=== PATIENT | female | born 1940 | race Hispanic/Latino ===

== ENCOUNTER 2017-09-13 10:53 | Emergency (ER) | payer MEDICARE, BC ==
[2017-09-13 10:54] VITALS: BMI 31.5
[2017-09-13 11:12] VITALS: TEMP 98; O2SAT 97
[2017-09-13] MEDS ORDERED: TDAP Vaccine 0.5 mL Syr IM ONE (11:19)
--- NOTE | 2017-09-13 11:27 | ED PDOC ---
Arrival/HPI - General Chief Complaint: Trauma Time Seen by Provider: 09/13/17 11:09 Historian: Patient - History of Present Illness Narrative History of Present Illness (Text): 09/13/17 11:14 A 77 year old female, whose past medical history includes diabetes and hypertension, presents to the emergency department complaining of mechanical fall. Patient reports she walked out of a store, and tripped and fell on the sidewalk. She complains of pain to right hip, right knee, right hand, left wrist , and notes an abrasion from glasses. Patient denies any LOC, back pain, neck pain, chest pain, abdominal pain, or any other complaints. Patient has no history of smoking or EtOH consumption. No PMD Associated Symptoms (Text): 09/13/17 11:42 Mechanical fall on uneven sidewalk just prior to arrival injuring her right knee and hip. Right hand and left wrist. Bridge of her nose and the left orbit secondary to her glasses. There was no loss of consciousness. No dizziness or lightheadedness numbness tingling or paresthesias. No chest pain or palpitations. She is ambulatory. Past Medical History - Provider Review Nursing Documentation Reviewed: Yes - Infectious Disease Hx of Infectious Diseases: None - Reproductive Menopause: Yes - Cardiac Hx Hypertension: Yes Hx Pacemaker: No - Pulmonary Hx Asthma: Yes (seasonal) - Neurological Hx Paralysis: No - HEENT Other/Comment: chronic migraines - Endocrine/Metabolic Hx Diabetes Mellitus Type 2: Yes Hx Hypothyroidism: Yes - Hematological/Oncological Hx Blood Transfusions: Yes (POSSIBLE) Hx Blood Transfusion Reaction: No - Musculoskeletal/Rheumatological Hx Musculoskeletal Disorders: Yes - Gastrointestinal Hx Constipation: Yes - Psychiatric Hx Emotional Abuse: No Hx Physical Abuse: No Hx Substance Use: No - Surgical History Hx Appendectomy: Yes Hx Hysterectomy: (fibroids) Hx Orthopedic Surgery: Yes - Anesthesia Hx Anesthesia Reactions: No Hx Malignant Hyperthermia: No - Suicidal Assessment Feels Threatened In Home Enviroment: No Family/Social History - Physician Review Nursing Documentation Reviewed: Yes Family/Social History: No Known Family HX Smoking Status: Former Smoker Hx Alcohol Use: No Hx Substance Use: No Allergies/Home Meds Allergies/Adverse Reactions: Allergies celecoxib [From Celebrex] Allergy (Verified 09/13/17 11:16) RASH chocolate flavor Allergy (Verified 09/13/17 11:16) RASH nabumetone Allergy (Verified 09/13/17 11:16) CONGESTION rizatriptan Allergy (Verified 09/13/17 11:16) RASH topiramate [From Topamax] Allergy (Verified 09/13/17 11:16) RASH naftifine [From Naftin] Adverse Reaction (Verified 09/13/17 11:16) RASH DANDER Adverse Reaction (Uncoded 06/07/15 13:07) CONGESTION DUST Adverse Reaction (Uncoded 06/07/15 13:07) CONGESTION PROMISEB Adverse Reaction (Uncoded 06/07/15 13:07) REDNESS RAGWEED Adverse Reaction (Uncoded 06/07/15 13:07) CONGESTION VIOX Adverse Reaction (Uncoded 06/07/15 13:07) HEADACHE Home Medications: Home Meds Medication Instructions Recorded Confirmed Acetaminophen/Butalbital/Caf 1 tab PO PRN PRN 01/17/13 06/07/15 [Fioricet 325 mg-50 mg-40 mg] Esomeprazole Magnesium [Nexium] 20 mg PO DAILY 01/17/13 06/07/15 Gabapentin [Neurontin] 100 mg PO TID 01/17/13 06/07/15 Lamotrigine [Lamictal] 150 mg PO DAILY 01/17/13 06/07/15 Levothyroxine Sodium [Synthroid] 0.125 mcg PO QAM 01/17/13 06/07/15 Lovastatin [Mevacor] 40 mg PO DAILY 01/17/13 06/07/15 Metformin HCl [Metformin HCl ER] 1,000 mg PO BID 01/17/13 06/07/15 Montelukast [Singulair] 10 mg PO HS 01/17/13 06/07/15 Naratriptan HCl [Amerge] 2.5 mg PO PRN PRN 01/17/13 06/07/15 Nisoldipine [Sular] 8.5 mg PO BID 01/17/13 06/07/15 Tramadol HCl [Ultram] 50 mg PO PRN PRN 01/17/13 06/07/15 Aspirin 81 mg PO DAILY 01/18/13 06/07/15 Calcium Carbonate/Vitamin D 1 cap PO DAILY 01/18/13 06/07/15 [Calcium/Vitamin D] Lactobacillus Acidophilus 1 ctb PO DAILY 01/18/13 06/07/15 [Acidophilus] Multimineral [Ehm-Xcm-Czdq] 1 tab PO DAILY 01/18/13 06/07/15 Multivitamin [Daily Multi Vitamin] 1 tab PO DAILY 01/18/13 06/07/15 Coenzyme Q10 [Co Q-10] 0 mg PO DAILY 06/07/15 06/07/15 D3-2000 1 tab PO BID 06/07/15 06/07/15 Thioctic Acid [Alpha Lipoic Acid] 0 mg PO HS 06/07/15 06/07/15 Review of Systems - Physician Review All systems were reviewed & negative as marked: Yes - Review of Systems Constitutional: Normal Respiratory: Normal Cardiovascular: Normal. absent: Chest Pain Gastrointestinal: Normal. absent: Abdominal Pain Musculoskeletal: Other (pain to right hip, right knee, right hand, left wrist). absent: Back Pain, Neck Pain Neurological: absent: Headache, Dizziness, Focal Weakness Physical Exam Vital Signs Reviewed: Yes Vital Signs Temp Pulse Resp BP Pulse Ox 09/13/17 11:10 98 F 67 18 183/70 H 97 09/13/17 11:07 98.4 F 67 16 183/70 H 97 Temperature: Afebrile Blood Pressure: Hypertensive Pulse: Regular Respiratory Rate: Normal Appearance: Positive for: Well-Appearing, Comfortable Pain Distress: Mild Mental Status: Positive for: Alert and Oriented X 3 - Systems Exam Head: Present: Abrasion (superficial abrasion to bridge of nose left infraorbital rim from glasses (nontender), no swelling. Extraocular muscles intact) Pupils: Present: PERRL Extroacular Muscles: Present: EOMI Conjunctiva: Present: Normal Ears: Present: NORMAL TM, Normal Canal. No: Erythema Mouth: Present: Moist Mucous Membranes Pharnyx: No: ERYTHEMA, EXUDATE, TONSILS ENLARGED Neck: Present: Normal Range of Motion Respiratory/Chest: Present: Clear to Auscultation, Good Air Exchange. No: Respiratory Distress, Accessory Muscle Use, Tender to Palpation Cardiovascular: Present: Regular Rate and Rhythm, Normal S1, S2. No: Murmurs Abdomen: Present: Normal Bowel Sounds. No: Tenderness, Distention, Peritoneal Signs Back: Present: Normal Inspection. No: CVA Tenderness, Midline Tenderness, Paraspinal Tenderness, Pain with Leg Raise Upper Extremity: Present: Tenderness (tenderness to left wrist), Other (Dorsal abrasions to right hand. Nontender with full range of motion. No swelling. Left wrist tenderness with no swelling or skin changes. Full range of motion.). No: Swelling (left wrist) Lower Extremity: Present: Normal ROM (full ROM to right hip and right knee), Tenderness (right hip tenderness and right knee mildly tender), Other ( superficial abrasion to anterior right knee with tenderness. Full range of motion. Able to weight-bear. Right hip is tender with full range of motion.) Neurological: Present: GCS=15, CN II-XII Intact, Speech Normal, Motor Func Grossly Intact Skin: Present: Abrasion (Abrasions as above) Psychiatric: Present: Alert, Oriented x 3, Normal Insight, Normal Concentration Medical Decision Making ED Course and Treatment: 09/13/17 11:19 Impression: 77 year old female complaining of mechanical fall. Physical exam shows superficial abrasion to right anterior knee that is mildly tender and has full ROM; right hip tenderness with no skin changes; dorsal abrasion to right hand with no tenderness and full ROM; left wrist tenderness with no skin changes or swelling; superficial abrasion to bridge of nose left interorbital rim from glasses (nontender) extraocular muscles intact. Plan: -- Right Hand X-Ray -- Right Hip X-ray -- Right Knee X-ray -- Left Wrist X-ray -- Boostrix -- Tylenol -- Reassess and disposition Prior Visits: Notes and results from previous visits were reviewed. Patient was last seen in the emergency department on 06/07/2015 for high fever (104 degrees F). Patient was admitted. Progress Notes: - RAD Interpretation Radiology Orders: 09/13/17 11:19 Hip Right [HIP MIN 2V W/ PELVIS RT] [RAD] Stat 09/13/17 11:20 HAND RIGHT 3 VIEWS [RAD] Stat KNEE RIGHT 2 VIEWS (AP & LAT) [RAD] Stat 09/13/17 11:21 WRIST, LEFT 3 VIEWS [RAD] Stat X-ray left wrist 3 view shows no fracture or dislocation. Right hand 3 views no fracture or dislocation. Right knee 2 views no fracture dislocation. Right hip and pelvis no fracture or dislocation. 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 No Sleep Is patient sleeping during reassessment? No Presence of Pain Presence of Pain Yes Location Pain Location Body Site Generalized Tetanus/Reduced Diphtheria/Acell Pertussis (Boostrix Vaccine Inj) 0.5 ml IM .ONCE ONE Stop: 09/13/17 11:20 - Scribe Statement The provider has reviewed the documentation as recorded by the Sha Turcios Provider Scribe Attestation: All medical record entries made by the Scribe were at my direction and personally dictated by me. I have reviewed the chart and agree that the record accurately reflects my personal performance of the history, physical exam, medical decision making, and the department course for this patient. I have also personally directed, reviewed, and agree with the discharge instructions and disposition. Disposition/Present on Arrival - Present on Arrival Any Indicators Present on Arrival: No History of DVT/PE: No History of Uncontrolled Diabetes: No Urinary Catheter: No History of Decub. Ulcer: No History Surgical Site Infection Following: None - Disposition Have Diagnosis and Disposition been Completed?: Yes Diagnosis: Contusion, Abrasion Disposition: HOME/ ROUTINE Disposition Time: 12:41 Patient Plan: Discharge Condition: GOOD Discharge Instructions (ExitCare): Abrasion (ED), Contusion in Adults (ED) Additional Instructions: Rest ice and elevation. Hypertension check with PMD. Follow-up with PMD. Follow- up in the ER as needed. Tylenol or Advil as directed on bottle as needed. Ultram if [id number] medication is not working. Prescriptions: Tramadol HCl [Ultram] 50 mg PO Q6 PRN #15 tab PRN Reason: Pain Forms: [employer] ([place]ican)
[2017-09-13 13:37] VITALS: BP 172/87; PULSE 72; RESP 16
--- NOTE | 2017-09-13 13:47 | RAD ---
PROCEDURE: Right Hand Radiographs. HISTORY: t COMPARISON: None. FINDINGS: BONES: Normal. No fracture. JOINTS: There is joint space narrowing in the 1st MCP and PIP joints SOFT TISSUES: Normal. OTHER FINDINGS: None. IMPRESSION: There is joint space narrowing in the 1st MCP and PIP joints
--- NOTE | 2017-09-13 13:47 | RAD ---
PROCEDURE: Left Wrist Radiographs. HISTORY: tr COMPARISON: None. FINDINGS: BONES: Normal. No fracture. JOINTS: Normal. No dislocation. SOFT TISSUES: Normal. OTHER FINDINGS: None. IMPRESSION: Normal left wrist radiographs.
--- NOTE | 2017-09-13 13:48 | RAD ---
PROCEDURE: Right Knee Radiographs. HISTORY: trauma COMPARISON: None. FINDINGS: BONES: Normal. No fracture. JOINTS: Normal. No osteoarthritis. JOINT EFFUSION: None. OTHER FINDINGS: None. IMPRESSION: Normal radiographs of the right knee.
--- NOTE | 2017-09-13 13:49 | RAD ---
PROCEDURE: Right Hip and pelvis Radiographs. HISTORY: trauma COMPARISON: None. FINDINGS: BONES: Normal. No fracture. JOINTS: Normal. SOFT TISSUES: Normal. OTHER FINDINGS: None. IMPRESSION: Negative study
== END 2017-09-13 13:21 | disposition home or self-care (01) ==
LOC: ED 10:53
DX: S60.812A Abrasion of left wrist, initial encounter (principal); S80.211A Abrasion, right knee, initial encounter; T14.8XXA Other injury of unspecified body region, initial encounter; W01.0XXA Fall on same level from slipping, tripping and stumbling without subsequent striking against object, initial encounter; Y92.480 Sidewalk as the place of occurrence of the external cause; E03.9 Hypothyroidism, unspecified; E11.9 Type 2 diabetes mellitus without complications; I10 Essential (primary) hypertension; Z87.891 Personal history of nicotine dependence

== ENCOUNTER 2018-09-15 06:37 | Day surgery (SDC) | payer MEDICARE, BC ==
[2018-09-07 08:50] VITALS: BMI 31.1
[2018-09-15] MEDS ORDERED: Propofol 10 mg/ml Inj (20 ML) ONE (08:26)
[2018-09-15] MEDS ORDERED: Sodium Chloride 0.9% 1,000 ML IV SCH (08:30)
[2018-09-15 09:14] VITALS: RESP 12; TEMP 98
[2018-09-15 09:35] VITALS: BP 144/63
[2018-09-15 10:40] VITALS: PULSE 64; O2SAT 97
== END 2018-09-15 10:17 | disposition home or self-care (01) ==
LOC: ENDO 06:37
PROVIDERS: ATTEND Specialist
DX: Z85.038 Personal history of other malignant neoplasm of large intestine (principal); K57.30 Diverticulosis of large intestine without perforation or abscess without bleeding; K64.8 Other hemorrhoids; I25.10 Atherosclerotic heart disease of native coronary artery without angina pectoris; E03.9 Hypothyroidism, unspecified; E11.9 Type 2 diabetes mellitus without complications; M19.90 Unspecified osteoarthritis, unspecified site; K21.9 Gastro-esophageal reflux disease without esophagitis; G89.29 Other chronic pain; M54.9 Dorsalgia, unspecified; Z90.49 Acquired absence of other specified parts of digestive tract; Z90.721 Acquired absence of ovaries, unilateral; K29.70 Gastritis, unspecified, without bleeding; K22.2 Esophageal obstruction; Z88.8 Allergy status to other drugs, medicaments and biological substances; Z91.018 Allergy to other foods; Z86.010 Personal history of colon polyps
CPT/HCPCS: 45378; 82948; J2001; J2704; J7030

== ENCOUNTER 2019-02-28 09:56 | Emergency (ER) | payer MEDICARE, BC ==
--- NOTE | 2019-02-28 10:05 | ED PDOC ---
Arrival/HPI - General Chief Complaint: Trauma Time Seen by Provider: 02/28/19 09:57 Historian: Patient - History of Present Illness Narrative History of Present Illness (Text): 02/28/19 10:20 78 y/o female with PMH of HTN, HLD, DM, Migraines, presents to the ED for evaluation of neck pain, back pain, and knee pain s/p mechanical fall this morning. Pt was taking her to a doctor's appointment, trying to move his walker through a door threshold when she fell forward, hitting her head and knees on the ground. Denies LOC. Pt was able to return to standing and ambulate without assistance. She does not take blood thinners. Currently c/o left sided neck pain, back pain, and bilateral knee pain. Denies open wounds, headache, dizziness, vision changes, numbness, weakness, paresthesias, saddle anesthesia, incontinence, thoracic back pain, arm pain, or any other associated symptoms. Past Medical History - Provider Review Nursing Documentation Reviewed: Yes - Infectious Disease Hx of Infectious Diseases: None - Cardiac Hx Pacemaker: No - Pulmonary Hx Asthma: Yes (seasonal) - Neurological Hx Paralysis: No - HEENT Other/Comment: chronic migraines - Endocrine/Metabolic Hx Diabetes Mellitus Type 2: Yes Hx Hypothyroidism: Yes - Hematological/Oncological Hx Blood Transfusions: No Hx Blood Transfusion Reaction: No - Musculoskeletal/Rheumatological Hx Musculoskeletal Disorders: Yes - Gastrointestinal Hx Constipation: Yes - Psychiatric Hx Emotional Abuse: No Hx Physical Abuse: No Hx Substance Use: No - Surgical History Hx Appendectomy: Yes Hx Hysterectomy: (fibroids) Hx Orthopedic Surgery: Yes - Anesthesia Hx Anesthesia Reactions: No Hx Malignant Hyperthermia: No - Suicidal Assessment Feels Threatened In Home Enviroment: No Family/Social History - Physician Review Nursing Documentation Reviewed: Yes Family/Social History: No Known Family HX Smoking Status: Former Smoker Hx Alcohol Use: Yes (SOCIALLY) Hx Substance Use: No Allergies/Home Meds Allergies/Adverse Reactions: Allergies celecoxib [From Celebrex] Allergy (Verified 09/13/17 11:16) RASH chocolate flavor Allergy (Verified 09/13/17 11:16) RASH nabumetone Allergy (Verified 09/13/17 11:16) CONGESTION rizatriptan Allergy (Verified 09/13/17 11:16) RASH topiramate [From Topamax] Allergy (Verified 09/13/17 11:16) RASH naftifine [From Naftin] Adverse Reaction (Verified 09/13/17 11:16) RASH DANDER Adverse Reaction (Uncoded 06/07/15 13:07) CONGESTION DUST Adverse Reaction (Uncoded 06/07/15 13:07) CONGESTION PROMISEB Adverse Reaction (Uncoded 06/07/15 13:07) REDNESS RAGWEED Adverse Reaction (Uncoded 06/07/15 13:07) CONGESTION VIOX Adverse Reaction (Uncoded 06/07/15 13:07) HEADACHE Home Medications: Home Meds Medication Instructions Recorded Confirmed Lovastatin [Mevacor] 40 mg PO DAILY 01/17/13 09/15/18 Metformin HCl [Metformin HCl ER] 1,000 mg PO BID 01/17/13 09/15/18 Montelukast [Singulair] 10 mg PO HS 01/17/13 09/15/18 Naratriptan HCl [Amerge] 2.5 mg PO PRN PRN 01/17/13 09/15/18 Nisoldipine [Sular] 8.5 mg PO BID 01/17/13 09/15/18 Aspirin 81 mg PO DAILY 01/18/13 09/15/18 Acetaminophen/Butalbital/Caf 1 tab PO PRN PRN 09/07/18 09/15/18 [Fioricet] Alpha Lipoic Acid 0 mg PO HS 09/07/18 09/15/18 Cholecalciferol (Vitamin D3) 2,000 unit PO BID 09/07/18 09/15/18 [Vitamin D3] Esomeprazole Magnesium [Nexium] 40 mg PO DAILY 09/07/18 09/15/18 Gabapentin [Neurontin] 300 mg PO TID 09/07/18 09/15/18 Levothyroxine [Synthroid] 125 mcg PO DAILY 09/07/18 09/15/18 Multimineral/Multivitamin 1 tab PO DAILY 09/07/18 09/15/18 [Therapeutic-M Tab] Multivitamin [Multivitamins] 1 each PO DAILY 09/07/18 09/15/18 Ubidecarenone [Co Q-10] 10 mg PO DAILY 09/07/18 09/07/18 lamoTRIgine [LaMICtal] 50 mg PO QAM 09/07/18 09/15/18 lamoTRIgine [LaMICtal] 100 mg PO QPM 09/07/18 09/15/18 Review of Systems - Review of Systems Constitutional: Normal. absent: Fatigue Eyes: Normal. absent: Vision Changes ENT: Normal. absent: Epistaxis Respiratory: Normal. absent: SOB, Cough Cardiovascular: Normal. absent: Chest Pain, Palpitations, Syncope Gastrointestinal: Normal. absent: Abdominal Pain, Nausea, Vomiting Genitourinary Female: Normal. absent: Dysuria, Frequency Musculoskeletal: Back Pain, Neck Pain, Other (bilateral knee pain) Neurological: Normal. absent: Headache, Dizziness, Focal Weakness, Gait Changes, Seizure, Other (no numbness, weakness, paresthesias) Physical Exam Vital Signs Reviewed: Yes Temperature: Afebrile Blood Pressure: Normal Pulse: Regular Respiratory Rate: Normal Appearance: Positive for: Well-Appearing, Non-Toxic, Comfortable Pain Distress: None Mental Status: Positive for: Alert and Oriented X 3 - Systems Exam Head: Present: Atraumatic, Normocephalic Pupils: Present: PERRL Extroacular Muscles: Present: EOMI Conjunctiva: Present: Normal Mouth: Present: Moist Mucous Membranes Neck: Present: Normal Range of Motion, Paraspinal Tenderness (left side). No: Meningeal Signs, MIDLINE TENDERNESS Respiratory/Chest: Present: Clear to Auscultation, Good Air Exchange. No: Respiratory Distress, Accessory Muscle Use Cardiovascular: Present: Regular Rate and Rhythm, Normal S1, S2, Peripheal Pulses Present Abdomen: No: Tenderness Back: Present: Normal Inspection, Midline Tenderness (lumbar spine), Paraspinal Tenderness (bilateral lumbar, L>R). No: CVA Tenderness Upper Extremity: Present: Normal Inspection, Normal ROM, NORMAL PULSES, Neurovascularly Intact, Capillary Refill < 2s. No: Cyanosis, Edema, Temperature Abnormalties Lower Extremity: Present: Normal Inspection, NORMAL PULSES, Normal ROM, Tenderness (mild anterior bilateral knees), Neurovascularly Intact, Capillary Refill < 2 s. No: Edema, Erythema, Deformity, Temperature Abnormalties Neurological: Present: GCS=15, CN II-XII Intact, Speech Normal, Motor Func Grossly Intact, Normal Sensory Function, Gait Normal Skin: Present: Warm, Dry, Normal Color. No: Rashes Psychiatric: Present: Alert, Oriented x 3, Normal Insight, Normal Concentration, Normal Affect, Normal Mood Medical Decision Making ED Course and Treatment: 02/28/19 10:19 Initial Plan: * CT Head * CT Cervical Spine * CT Lumbar Spine * Bilateral Knee XR * Tylenol * Lidoderm Imaging negative for any acute pathology. No fractures or dislocation. No open wounds, no indication for tetanus. Pt reports improvement in pain with medication. Ambulating with steady gait, bearing weight without difficulty. Advised PMD followup, provided with orthopedic followup as well. Diagnostic testing results and plan of care discussed with patient. Strict instructions given regarding prescription use, importance of followup, and signs/symptoms to return to ER including worsening pain, headache, dizziness, vomiting, numbness, weakness, paresthesias, or any other new/worsening symptoms. Pt verbalized understanding of discussion. Patient is A&Ox3, ambulating with steady gait, with vital signs stable for discharge. - RAD Interpretation Narrative RAD Interpretations (Text): 02/28/19 12:[address]: FINDINGS: HEMORRHAGE: No intracranial hemorrhage. BRAIN: No mass effect or edema. No atrophy or chronic microvascular ischemic changes. VENTRICLES: Unremarkable. No hydrocephalus. CALVARIUM: Unremarkable. PARANASAL SINUSES: Unremarkable as visualized. No significant inflammatory changes. MASTOID AIR CELLS: Unremarkable as visualized. No inflammatory changes. OTHER FINDINGS: None. IMPRESSION: No acute intracranial findings Cervical Spine CT: FINDINGS: VERTEBRAE: No fracture. Normal alignment. No destructive bony lesion. DISCS/SPINAL CANAL/NEURAL FORAMINA: No significant central canal or neural foraminal stenosis. Discs heights are grossly preserved. PARASPINAL SOFT TISSUES: Unremarkable. OTHER FINDINGS: None. IMPRESSION: Unremarkable CT of the cervical spine. No evidence of fracture Lumbar Spine CT: FINDINGS: VERTEBRAE: Unremarkable. No fracture. Normal alignment. DISCS/SPINAL CANAL/NEURAL FORAMINA: L1-2: Unremarkable. L2-3: Unremarkable. L3-4: Facet arthropathy with mild stenosis L4-5: Severe facet arthropathy and disc bulging with severe spinal stenosis L5-S1: There is severe disc degeneration with osteophyte formation. There is severe facet arthropathy. This results in severe spinal stenosis PARASPINAL SOFT TISSUES: Unremarkable. OTHER FINDINGS: None. IMPRESSION: Severe spinal stenosis at L4-5 and L5-S1. See comments Right Knee XR: FINDINGS: BONES: Bone alignment and mineralization are normal. There is no acute displaced fracture or bone destruction. JOINTS: There is mild tricompartmental degenerative osteoarthrosis with reduced joint spaces, marginal osteophytes and tibial spiking, worse in the medial compartment. JOINT EFFUSION: None. OTHER FINDINGS: None. IMPRESSION: No acute displaced fracture or dislocation. Left Knee XR: FINDINGS: BONES: Bone alignment and mineralization are normal. There is no acute displaced fracture or bone destruction. JOINTS: There is mild tricompartmental degenerative osteoarthrosis with reduced joint spaces, marginal osteophytes and tibial spiking, worse in the medial compartment. JOINT EFFUSION: None. OTHER FINDINGS: None. IMPRESSION: No acute displaced fracture or dislocation. 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 Disposition/Present on Arrival - Present on Arrival Any Indicators Present on Arrival: No History of DVT/PE: No History of Uncontrolled Diabetes: No Urinary Catheter: No History Surgical Site Infection Following: None - Disposition Have Diagnosis and Disposition been Completed?: Yes Diagnosis: Fall, Muscle strain Disposition: HOME/ ROUTINE Disposition Time: 12:15 Patient Plan: Discharge Patient Problems: Current Active Problems Problem Status Onset Fall Acute Muscle strain Acute Condition: GOOD Discharge Instructions (ExitCare): Muscle Strain, Preventing Falls in the Older Adult Additional Instructions: Tylenol/ibuprofen for pain as needed Lidoderm patches daily, 12 hours on 12 hours off Rest, no strenuous activity Followup with primary doctor within 2 days Followup with orthopedist for continues pain Return to ER with any new/worsening symptoms Prescriptions: Lidocaine 5% [Lidoderm] 1 ea TD DAILY PRN #30 patch PRN Reason: Pain, Mild (1-3) Referrals: Delroy Krishnamurthy MD [Staff Provider] - Follow up with primary Rasta Parish MD [Primary Care Provider] - Follow up with primary Forms: [employer] ([place])
[2019-02-28 10:08] VITALS: BMI 30.2
[2019-02-28] MEDS ORDERED: Lidocaine 5% Patch TD STA (10:18)
--- NOTE | 2019-02-28 12:02 | CT ---
Date of service: 02/28/2019 PROCEDURE: CT HEAD WITHOUT CONTRAST. HISTORY: fall COMPARISON: None available. TECHNIQUE: Axial computed tomography images were obtained through the head/brain without intravenous contrast. Radiation dose: Total exam DLP = 860.7 mGy-cm. This CT exam was performed using one or more of the following dose reduction techniques: Automated exposure control, adjustment of the mA and/or kV according to patient size, and/or use of iterative reconstruction technique. FINDINGS: HEMORRHAGE: No intracranial hemorrhage. BRAIN: No mass effect or edema. No atrophy or chronic microvascular ischemic changes. VENTRICLES: Unremarkable. No hydrocephalus. CALVARIUM: Unremarkable. PARANASAL SINUSES: Unremarkable as visualized. No significant inflammatory changes. MASTOID AIR CELLS: Unremarkable as visualized. No inflammatory changes. OTHER FINDINGS: None. IMPRESSION: No acute intracranial findings
--- NOTE | 2019-02-28 12:12 | CT ---
Date of service: 02/28/2019 PROCEDURE: CT Cervical Spine without contrast HISTORY: fall, neck pain COMPARISON: None available. TECHNIQUE: Axial computed tomography images were obtained of the cervical spine without the use of intravenous contrast. Coronal and sagittal reformatted images were created and reviewed. Radiation dose: Total exam DLP = 547.84 mGy-cm. This CT exam was performed using one or more of the following dose reduction techniques: Automated exposure control, adjustment of the mA and/or kV according to patient size, and/or use of iterative reconstruction technique. FINDINGS: VERTEBRAE: No fracture. Normal alignment. No destructive bony lesion. DISCS/SPINAL CANAL/NEURAL FORAMINA: No significant central canal or neural foraminal stenosis. Discs heights are grossly preserved. PARASPINAL SOFT TISSUES: Unremarkable. OTHER FINDINGS: None. IMPRESSION: Unremarkable CT of the cervical spine. No evidence of fracture
--- NOTE | 2019-02-28 12:17 | CT ---
Date of service: 02/28/2019 PROCEDURE: CT Lumbar Spine without contrast HISTORY: fall, midline lumbar spine pain COMPARISON: 06/10/2015 TECHNIQUE: Axial computed tomography images were obtained of the lumbar spine without the use of intravenous contrast. Coronal and sagittal reformatted images were created and reviewed. Radiation dose: Total exam DLP = 1020.38 mGy-cm. This CT exam was performed using one or more of the following dose reduction techniques: Automated exposure control, adjustment of the mA and/or kV according to patient size, and/or use of iterative reconstruction technique. FINDINGS: VERTEBRAE: Unremarkable. No fracture. Normal alignment. DISCS/SPINAL CANAL/NEURAL FORAMINA: L1-2: Unremarkable. L2-3: Unremarkable. L3-4: Facet arthropathy with mild stenosis L4-5: Severe facet arthropathy and disc bulging with severe spinal stenosis L5-S1: There is severe disc degeneration with osteophyte formation. There is severe facet arthropathy. This results in severe spinal stenosis PARASPINAL SOFT TISSUES: Unremarkable. OTHER FINDINGS: None. IMPRESSION: Severe spinal stenosis at L4-5 and L5-S1. See comments
--- NOTE | 2019-02-28 12:18 | RAD ---
Date of service: 02/28/2019 PROCEDURE: Left Knee Radiographs. HISTORY: Pain. COMPARISON: None. TECHNIQUE: 2 views obtained. FINDINGS: BONES: Bone alignment and mineralization are normal. There is no acute displaced fracture or bone destruction. JOINTS: There is mild tricompartmental degenerative osteoarthrosis with reduced joint spaces, marginal osteophytes and tibial spiking, worse in the medial compartment. JOINT EFFUSION: None. OTHER FINDINGS: None. IMPRESSION: No acute displaced fracture or dislocation.
--- NOTE | 2019-02-28 12:19 | RAD ---
Date of service: 02/28/2019 PROCEDURE: Right Knee Radiographs. HISTORY: Fall, right knee pain COMPARISON: None. TECHNIQUE: 2 views obtained. FINDINGS: BONES: Bone alignment and mineralization are normal. There is no acute displaced fracture or bone destruction. JOINTS: There is mild tricompartmental degenerative osteoarthrosis with reduced joint spaces, marginal osteophytes and tibial spiking, worse in the medial compartment. JOINT EFFUSION: None. OTHER FINDINGS: None. IMPRESSION: No acute displaced fracture or dislocation.
[2019-02-28 12:50] VITALS: RESP 19; O2SAT 99
[2019-02-28 12:52] VITALS: BP 130/78; PULSE 90; TEMP 98
== END 2019-02-28 12:51 | disposition home or self-care (01) ==
LOC: ED 09:56
DX: T14.8XXA Other injury of unspecified body region, initial encounter (principal); W01.0XXA Fall on same level from slipping, tripping and stumbling without subsequent striking against object, initial encounter; I10 Essential (primary) hypertension; E78.5 Hyperlipidemia, unspecified; E11.9 Type 2 diabetes mellitus without complications; J45.909 Unspecified asthma, uncomplicated; E03.9 Hypothyroidism, unspecified; Z87.891 Personal history of nicotine dependence